=== PATIENT | female | born 1940 | race Caucasian/White ===

== ENCOUNTER 2022-07-19 10:53 | Outpatient (CLI) | payer MEDICARE, OTHER ==
--- NOTE | 2022-07-19 12:48 | CT Report ---
PROCEDURE: CHEST WO INDICATIONS: PULMONARY NODULE TECHNIQUE: Noncontrast 1mm axial images were acquired from the pulmonary apices to the posterior costophrenic an gles. Axial 5 mm soft tissue kernel reconstructions were performed as well as 8 mm axial MIP and cor onal and sagittal 5 mm reformations. For radiation dose reduction, the following was used: automate d exposure control, adjustment of mA and/or kV according to patient size. COMPARISON: None available at time of dictation FINDINGS: Image quality: Excellent. Lungs and pleura: No acute air space opacities. No pleural effusions or pneumothorax. Central and peripheral airways are patent and normal in caliber. Calcified granuloma in the posterior right lowe r lobe, benign. Pleural parenchymal bands within the lung bases. Mediastinum: Heart size is normal. No pericardial effusion. No mediastinal adenopathy by size crit eria. Thoracic aorta and central pulmonary arteries are normal in size. Esophagus is normal in wilda lynn. No hiatal hernia. Bones and chest wall: No suspicious bony lesions. No vertebral body compression fractures. No axil suellen or supraclavicular adenopathy by size criteria. Diminutive thyroid, with heterogeneous attenuat ion. Abdomen: Visualized upper abdominal solid organs and bowel loops appear normal in the absence of con trast. IMPRESSION: 1.No suspicious pulmonary nodules. 2.Diminutive thyroid with heterogeneous attenuation, suggestive of thyroiditis. Consider thyroid pane l. Reviewed by: Jose Bender on 07/19/2022 12:46 PM PDT Approved by: Jose Bender on 07/19/2022 12:46 PM PDT Station ID: [id number]
== END 2022-07-19 10:54 | disposition home or self-care (01) ==
LOC: DI 10:53
PROVIDERS: ATTEND Internal Medicine Nephrology
DX: R91.1 Solitary pulmonary nodule (principal)

== ENCOUNTER 2022-08-31 10:38 | Outpatient (CLI) | payer MEDICARE, OTHER ==
[2022-08-31 10:57] LABS: CREATININE 1.4 mg/dL (0.4-1.0)
[2022-08-31] MEDS ORDERED: iohexoL-300 100 ML VIAL ONE ×3 (11:23→12:52)
--- NOTE | 2022-08-31 13:20 | CT Report ---
PROCEDURE: ABDOMEN/PELVIS W INDICATIONS: LLQ ABD PAIN CONTRAST: 100ml omni 300 TECHNIQUE: After the administration of weight appropriate dose of intravenous contrast, 5 mm thick sections acqu ired from the diaphragms to the symphysis. 5 mm thick coronal and sagittal reformats were acquired. For radiation dose reduction, the following was used: automated exposure control, adjustment of mA and/or kV according to patient size. COMPARISON: None FINDINGS: Image quality: Diagnostic. Lung bases and heart: Bibasilar atelectasis. Heart size is normal. Mild atherosclerotic calcification s of the coronary arteries. Liver: Mild diffuse hepatic steatosis. No focal hepatic lesions. Gallbladder and biliary tree: Unremarkable. No biliary dilation. Spleen: Unremarkable. Pancreas: Pancreas is normal in appearance. No peripancreatic inflammation. Adrenals: Unremarkable. Kidneys and ureters: Kidneys are normal in size and enhancement. No hydronephrosis or perinephric str anding. Bilateral ureters are normal in course and caliber. Bowel and peritoneum: No bowel distension. No pathologic free fluid. A few scattered colonic divertic wesley without evidence for acute diverticulitis. No evidence for bowel obstruction or acute inflammator y changes. Appendix is not definitively visualized; however, no secondary findings for acute appendic itis identified. Lymph nodes: No central or retroperitoneal adenopathy. Vessels: Atherosclerotic calcifications of the abdominal aorta without aneurysmal dilatation. Visuali zed IVC appears patent. PELVIS Reproductive organs: Unremarkable. Bladder: Unremarkable. Lymph nodes: Unremarkable. Bones: No aggressive osseous abnormality. No acute compression fractures. Multilevel spondylosis of the imaged spine. Other: None. IMPRESSION: 1. CT abdomen and pelvis without acute abnormalities to explain patient's symptoms. 2. Scattered colonic diverticulosis without evidence for acute diverticulitis. 3. Atherosclerotic vascular disease. 4. Hepatic steatosis. Reviewed by: Pawel Hampton MD on 08/31/2022 1:19 PM PDT Approved by: Pawel Hampton MD on 08/31/2022 1:19 PM PDT Station ID: [id number]
[2022-08-31] MEDS: iohexoL-300 100 ML VIAL IVP ONE (18:02)
[2022-08-31] MEDS: DIATRIZOATE MEGLU/DIATRIZO SOD 30 ML BOTTLE PO ONE (18:02)
== END 2022-08-31 10:39 | disposition home or self-care (01) ==
LOC: LAB 10:38
PROVIDERS: ATTEND Family Medicine
DX: N18.31 Chronic kidney disease, stage 3a (principal); R10.32 Left lower quadrant pain; K59.00 Constipation, unspecified; R14.0 Abdominal distension (gaseous); K57.30 Diverticulosis of large intestine without perforation or abscess without bleeding; I25.10 Atherosclerotic heart disease of native coronary artery without angina pectoris; I70.0 Atherosclerosis of aorta; K76.0 Fatty (change of) liver, not elsewhere classified
CPT/HCPCS: 36415; 74177; 82565; Q9963; Q9967